=== PATIENT | female | born 1995 | race Caucasian/White ===

== ENCOUNTER → 2018-06-26 | Day surgery (SDC) | payer BC | LOC: ER/OP 16:01 | PROVIDERS: ATTEND Emergency Medicine | DX: Z29.8 Encounter for other specified prophylactic measures (principal); O26.20 Pregnancy care for patient with recurrent pregnancy loss, unspecified trimester | CPT/HCPCS: 90384; 96372 ==

== ENCOUNTER 2018-09-07 17:17 | Inpatient (IN) | payer BC ==
--- NOTE | 2018-09-07 21:32 | PDOC.LDHP ---
Labor and Delivery H&P Chief complaint: scheduled induction HPI: 23 y/o at 40 weeks and 0 days, presents today for term induction of labor. Patient seems to have a bit of borderline pelvic size, but clinical pelvimetry is difficult due to strong ligaments and soft tissues not being very elastic on exam. Primary discussed, but patient desires a trial of labor. Her identical sister did achieve vaginal delivery. Current gestational age (weeks): 40 Due date: 09/07/18 Grav: 3 Para: 0 Current complications: none Abnormal US findings: No Current medications: none - Physical Exam Vital signs reviewed and normal: yes General: NAD Heart: RRR Lungs: CTAB Abdomen: gravid Extremeties: no edema FHT: category 1 - Assessment L&D Assessment: elective induction at term - Plan Plan: admit to L&D, cervical ripening
[2018-09-07] MEDS ORDERED: NS / Oxytocin 40 units/1000ml 1,000 ML IV PRN (21:33)
[2018-09-07] MEDS ORDERED: Butorphanol Tartrate 1 MG/ML VIAL SLOW IVP PRN (21:33)
[2018-09-07] MEDS ORDERED: Promethazine HCl 25 MG/ML VIAL IM PRN (21:33)
[2018-09-07] MEDS ORDERED: Ondansetron PF 4 MG/2 ML Vial IVP PRN (21:33)
[2018-09-07] MEDS ORDERED: Methylergonovine 0.2 MG/ML VIAL IM PRN (21:33)
[2018-09-07] MEDS ORDERED: Acetaminophen 500 MG TAB PO PRN (21:33)
[2018-09-07] MEDS ORDERED: Diphenoxylate HCl/Atropine Tablet PO PRN ×2 (21:33)
[2018-09-07] MEDS ORDERED: Lidocaine 1% (PF) 30 ML VIAL SC PRN (21:33)
[2018-09-07] MEDS ORDERED: Docusate 100 MG CAP PO PRN (21:33)
[2018-09-07] MEDS ORDERED: HYDROcodone/Acetaminophen 5/325 mg Tablet PO PRN ×2 (21:33)
[2018-09-07] MEDS ORDERED: Carboprost 250 MCG/ML AMP IM PRN (21:33)
[2018-09-07] MEDS ORDERED: Ibuprofen 800 MG TAB PO PRN (21:33)
[2018-09-07] MEDS ORDERED: Zolpidem Tartrate 5 MG TAB PO PRN (21:33)
[2018-09-07] MEDS ORDERED: Misoprostol 200 MCG TAB PR PRN (21:33)
[2018-09-07] MEDS ORDERED: NS w/ Oxytocin 10 units 500 ML IV SCH (23:30)
[2018-09-08] MEDS: Lactated Ringer's 1,000 ML IV SCH ×2 (00:01→06:19)
[2018-09-08 00:08] VITALS: BMI 29.2
[2018-09-08 00:17] LABS: Mean Corpuscular HGB CONC 34.2 g/dL (32.0-36.0); Mean Corpuscular Hemoglobin 30.7 pg (27.0-31.0); Mean Platelet Volume 6.8 fL (7.4-10.4); Platelet Count 223 thou/uL (130-400); RBC Distribution Width 12.2 % (11.5-14.5); Red Blood Cell (RBC) Count 3.91 mill/uL (4.20-5.40); White Blood Cell (WBC) Count 11.3 thou/uL (4.8-10.8)
[2018-09-08] MEDS: Misoprostol 100 MCG TAB VAG SCH ×3 (00:39→06:39)
[2018-09-08] MEDS: NS w/ Oxytocin 10 units 500 ML IV SCH ×2 (00:39→10:53)
[2018-09-08 00:53] LABS: HBSAg Index 0.36 S/CO (0-0.99); Hep B Surf Ag Non-Reactive S/CO (NonReactive)
[2018-09-08 00:56] LABS: Syphilis Antibody Nonreactive (Nonreactive); Syphilis Antibody Index 0.04 S/CO (<1.00 Non-Reactive)
[2018-09-08] MEDS ORDERED: Fentanyl 4 mcg/Bup 0.1% Cadd 100 ML ONE (09:35)
[2018-09-08] MEDS ORDERED: Bupivacaine 0.5% 10 ML VIAL ONE (09:44)
[2018-09-08] MEDS ORDERED: Fentanyl 100 MCG/2 ML VIAL ONE (09:44)
[2018-09-08] MEDS ORDERED: Promethazine HCl 25 MG/ML VIAL IM PRN ×2 (10:18→16:54)
[2018-09-08] MEDS ORDERED: Naloxone HCl 0.4 mg/ml Vial IVP PRN ×2 (10:18)
[2018-09-08] MEDS ORDERED: Lactated Ringer's 500 ML IV PRN (10:18)
[2018-09-08] MEDS ORDERED: diphenhydrAMINE 50 MG/ML VIAL IVP PRN (10:18)
[2018-09-08] MEDS ORDERED: Acetaminophen 325 MG TAB PO PRN (10:18)
[2018-09-08] MEDS ORDERED: Eucerin (Mineral Oil/Petrolatum,White) 30 gm Jar TOP PRN (10:18)
[2018-09-08] MEDS ORDERED: Lidocaine 1.5%/Epinephrine 1:200,000 5 ML AMPUL IJ ONE (10:25)
[2018-09-08] MEDS ORDERED: Fentanyl 4 mcg/Bupivacaine 0.1% Cassette 100 ML EPIDURAL SCH (10:30)
[2018-09-08] MEDS ORDERED: Communication Order-Pharmacy FS SCH (10:30)
[2018-09-08] MEDS ORDERED: ePHEDrine/0.9% NaCl/PF SYRINGE 50 mg/10 ml SLOW IVP PRN (10:30)
[2018-09-08] MEDS ORDERED: Ondansetron PF 4 MG/2 ML Vial IVP PRN ×2 (10:30→16:54)
[2018-09-08] MEDS: NS / Oxytocin 40 units/1000ml 1,000 ML IV SCH ×2 (14:50→17:51)
[2018-09-08] MEDS ORDERED: diphenhydrAMINE 25 MG CAP PO PRN (16:54)
[2018-09-08] MEDS ORDERED: Milk Of Magnesia 30 ML UDCUP PO PRN (16:54)
[2018-09-08] MEDS ORDERED: Measles/Mumps/Rubella 10 MCG/0.5 ML VIAL SC ONE (16:54)
[2018-09-08] MEDS ORDERED: Bisacodyl 10 MG SUPP PR PRN (16:54)
[2018-09-08] MEDS ORDERED: Lanolin Ointment 7 GM TUBE TOP PRN (16:54)
[2018-09-08] MEDS ORDERED: HYDROcodone/Acetaminophen 5/325 mg Tablet PO PRN ×2 (16:54)
[2018-09-08] MEDS ORDERED: Preparation H Ointment 28 GM TUBE PR PRN (16:54)
[2018-09-08] MEDS ORDERED: Methylergonovine 0.2 MG TAB PO PRN (16:54)
[2018-09-08] MEDS ORDERED: Varicella virus, LIVE 0.5 ML VIAL SC ONE (16:54)
[2018-09-08] MEDS ORDERED: Benzocaine-Menthol 82.5 ML CAN TOP PRN (16:54)
[2018-09-08] MEDS ORDERED: Adacel (T-DAP) 0.5 ML SYRINGE IM ONE (16:54)
[2018-09-08] MEDS ORDERED: Zolpidem Tartrate 5 MG TAB PO PRN (17:00)
[2018-09-08] MEDS ORDERED: Misoprostol 200 MCG TAB VAG PRN (17:00)
[2018-09-08] MEDS: Ibuprofen 800 MG TAB PO SCH (17:45)
[2018-09-08] MEDS: Ferrous Sulfate 325 MG TAB PO SCH (21:28)
[2018-09-09] MEDS: Ibuprofen 800 MG TAB PO SCH ×4 (00:17→21:34)
[2018-09-09] MEDS: Docusate Calcium (SURFAK) 240 MG CAP PO SCH ×3 (00:17→21:34)
[2018-09-09 07:19] LABS: Hemoglobin 11.5 g/dL (12.0-16.0); Mean Corpuscular HGB CONC 33.4 g/dL (32.0-36.0); Mean Corpuscular Hemoglobin 30.5 pg (27.0-31.0); Mean Corpuscular Volume 91.3 fL (78.0-98.0); Mean Platelet Volume 6.9 fL (7.4-10.4); Platelet Count 190 thou/uL (130-400); RBC Distribution Width 12.2 % (11.5-14.5); Red Blood Cell (RBC) Count 3.76 mill/uL (4.20-5.40); White Blood Cell (WBC) Count 14.4 thou/uL (4.8-10.8)
[2018-09-09] MEDS: Lactated Ringer's 1,000 ML IV SCH (07:45)
[2018-09-09] MEDS: Misoprostol 100 MCG TAB VAG SCH (07:45)
[2018-09-09] MEDS: Ferrous Sulfate 325 MG TAB PO SCH ×2 (09:10→17:52)
[2018-09-09] MEDS: Prenatal Vitamin 1 TAB PO SCH (09:50)
--- NOTE | 2018-09-09 16:32 | PDOC.PP ---
Post Progress Note Post Day #: 1 PO intake tolerated: yes Flatus: yes Ambulation: yes Vital Signs (12 hours) Temp Pulse Resp BP Pulse Ox 09/09/18 12:00 97.9 F 76 20 115/68 09/09/18 08:30 98 09/09/18 08:00 97.8 F 72 18 109/67 98 Weight Weight 165 lb - Physical Examination General: NAD Cardiovascular: no m/r/g, RRR Respiratory: clear to auscultation bilaterally Abdominal: + bowel sounds, lochia Extremities: negative homans (B) Neurological: no gross focal deficits Psychiatric: A&Ox3 (DC tomorrow planned.), normal affect Result Diagrams: 09/09/18 07:01 Additional Labs: Post Labs Blood Type O NEGATIVE 09/08/18 00:28 Hep Bs Antigen Non-Reactive S/CO (NonReactive) 09/07/18 23:56
[2018-09-10] MEDS: Ibuprofen 800 MG TAB PO SCH ×3 (05:23→15:42)
[2018-09-10] MEDS: Ferrous Sulfate 325 MG TAB PO SCH (10:23)
[2018-09-10] MEDS: Docusate Calcium (SURFAK) 240 MG CAP PO SCH (10:23)
[2018-09-10] MEDS: Prenatal Vitamin 1 TAB PO SCH (10:23)
[2018-09-10 13:12] VITALS: BP 113/63; TEMP 97.8
--- NOTE | 2018-09-11 16:01 | DN ---
DATE OF PROCEDURE: 09/08/2018 PREOPERATIVE DIAGNOSIS: Intrauterine at 40 weeks and 1 day with a term induction of labor. POSTOPERATIVE DIAGNOSIS: Intrauterine at 40 weeks and 1 day with a term induction of labor. PROCEDURE: Spontaneous vaginal delivery over a first-degree laceration of the perineum. FINDINGS: Viable female , weighing 2795 g or 7 pounds 3 ounces. Apgars of 8 and 9. QUANTITATIVE BLOOD LOSS: 127 mL. COMPLICATIONS: None. PROCEDURE IN DETAIL: The patient presented to [facility] where she was admitted to the labor and delivery service. The patient underwent a normal and uneventful labor with normal cervical dilatation until she was found to be completely dilated. She was then allowed to push and was able to bring the baby down and delivered the baby in a vertex presentation without difficulties. Once the head delivered in occiput anterior position, the shoulders followed spontaneously along with the rest of the baby's body. Once out the baby's mouth and nose were bulb suctioned. The cord was clamped and cut and baby was handed to waiting attendants. Cord blood was collected. Gentle fundal massage was performed and the placenta delivered intact without problems. Hemostasis was assured. Quantitative blood loss was calculated. Inspection of the cervix, vaginal vault, and perineum did not reveal any lacerations needing suturing. Once again, hemostasis was within normal limits and the patient was allowed to recover in the labor and delivery room. Baby went to nursery. Job ID: [id number]
== END 2018-09-10 16:23 | disposition home or self-care (01) | DRG 807 ==
LOC: L&D 22:49 → 3SW 09-08 20:27
PROVIDERS: ADMIT Obstetrics & Gynecology; ATTEND Obstetrics & Gynecology
PROC: 3E0P7VZ Introduction of Hormone into Female Reproductive, Via Natural or Artificial Opening (ICD-10-PCS; 2018-09-07)
PROC: 3E033VJ Introduction of Other Hormone into Peripheral Vein, Percutaneous Approach (ICD-10-PCS; 2018-09-07)
PROC: 10E0XZZ Delivery of Products of Conception, External Approach (ICD-10-PCS; principal; 2018-09-08)
DX: O80 Encounter for full-term uncomplicated delivery (principal); Z37.0 Single live birth; Z3A.40 40 weeks gestation of pregnancy
CPT/HCPCS: 36415; 51702; 85027; 86780; 86850; 86870; 86900; 86901; 87340; 90707; 90715; 90716; J0595; J3010; J3490